=== PATIENT | male | born 1960 | race Caucasian/White ===

== ENCOUNTER 2019-09-09 10:50 | Inpatient (IN) | payer MEDICAID, OTHER ==
[~2019-09-09] VITALS: Ht 157.5 cm; Wt 53.8 kg
[~2019-09-09 10:50] MED LIST: BENZ0.5T44 PO; HALO5TAB2 PO; TRAZ-220 PO
[2019-09-09 13:44] LABS: BASOPHILS % (AUTO) 0.7 % (0.0-2.0); EOSINOPHILS % (AUTO) 2.6 % (1.0-6.0); HEMATOCRIT 44.8 % (41-53); HEMOGLOBIN 15.4 g/dL (13.5-17.5); LYMPHOCYTES # (AUTO) 1.4 K/uL (1.0-4.8); LYMPHOCYTES % (AUTO) 30.3 % (22.0-44.0); MEAN CORPUSCULAR HEMOGLOBIN 33.3 pg (26.0-34.0); MEAN CORPUSCULAR HGB CONC 34.4 G/dL (31.0-37.0); MEAN CORPUSCULAR VOLUME 97 fL (80-100); MONOCYTES # (AUTO) 0.5 K/uL (0.1-1.0); MONOCYTES % (AUTO) 11.2 % (2.0-9.0); NEUTROPHILS # (AUTO) 2.5 K/uL (1.8-7.7); NEUTROPHILS % (AUTO) 55.2 % (40.0-70.0); PLATELET COUNT (AUTO) 174 K/uL (150-450); RED BLOOD CELL COUNT(AUTO) 4.62 MIL/uL (4.50-5.90); RED CELL DISTRIBUTION WIDTH 13.2 % (11.5-14.5)
[2019-09-09 13:47] LABS: ANION GAP 4 mmol/L (8-16); CALCIUM, TOTAL 8.6 mg/dL (8.8-10.5); CARBON DIOXIDE 34 mmol/L (22-29); CHLORIDE 104 mmol/L (98-107); CREATININE 0.86 mg/dL (0.60-1.30); GLOMERULAR FILTR. RATE CALC > 60 mL/min (>60); GLUCOSE,RANDOM 94 mg/dL (70-110); SODIUM SERUM 142 mmol/L (136-145); UREA NITROGEN, BLOOD 6 mg/dL (7-18)
[2019-09-09 13:53] LABS: ALANINE AMINOTRANSFERASE 51 U/L (12-78); ALBUMIN 3.7 g/dL (3.4-5.0); ALKALINE PHOSPHATASE 79 U/L (46-116); ASPARTATE AMINOTRANSFERASE 69 U/L (15-37); BILIRUBIN,TOTAL 0.5 mg/dL (0.1-1.0)
[2019-09-09] MEDS ORDERED: MAGNESIUM HYDROXIDE SUSPENSION 30 ML UDCUP PO PRN (14:00)
[2019-09-09] MEDS ORDERED: HydrOXYzine PAMOATE 50 MG CAPSULE PO PRN (14:00)
[2019-09-09] MEDS ORDERED: PROMETHAZINE HCL 25 MG TABLET PO PRN (14:00)
[2019-09-09] MEDS ORDERED: ACETAMINOPHEN 325 MG TABLET PO PRN ×2 (14:00→19:30)
[2019-09-09] MEDS ORDERED: LORazepam 2 MG TABLET PO PRN (14:00)
[2019-09-09] MEDS ORDERED: GuaiFENesin/D-METHORPHAN [SUGAR-FREE] 200-20MG/10 ML SYRUP UDCUP PO PRN ×2 (14:00→19:30)
[2019-09-09] MEDS ORDERED: QUEtiapine FUMARATE 100 MG TABLET PO PRN (14:00)
[2019-09-09] MEDS ORDERED: ZOLPIDEM TARTRATE 10 MG TABLET PO PRN (14:00)
[2019-09-09] MEDS ORDERED: LOPERAMIDE HCL 2 MG CAPSULE PO PRN ×2 (14:00→19:30)
[2019-09-09] MEDS ORDERED: TUBERCULIN, PURIFIED PROTEIN DERIVATIVE 5 TU/0.1 ML SYRINGE ID ONE (14:00)
[2019-09-09] MEDS ORDERED: MAG HYDROX/AL HYDROX/SIMETH ES 30 ML SUSPENSION UDCUP PO PRN ×2 (14:00→19:30)
[2019-09-09 18:06] VITALS: BP 140/98
[2019-09-09] MEDS: THIAMINE HCL 100 MG TABLET PO SCH (18:44)
[2019-09-09] MEDS ORDERED: PETROLATUM,WHITE 28 GM JELLY TP PRN (19:30)
[2019-09-09] MEDS ORDERED: ONDANSETRON HCL 4 MG TABLET PO PRN (19:30)
[2019-09-09] MEDS ORDERED: IBUPROFEN 400 MG TABLET PO PRN (19:30)
[2019-09-09] MEDS ORDERED: HYPROMELLOSE 0.5% 15 ML OPHTHALMIC SOLUTION OU PRN (19:30)
[2019-09-09] MEDS ORDERED: CloNIDine HCL 0.1 MG TABLET PO PRN (19:30)
[2019-09-09] MEDS ORDERED: NICOTINE 14 MG/24 HOUR PATCH TD PRN (19:30)
[2019-09-09] MEDS ORDERED: ALBUTEROL SULFATE HFA 90 MCG/PUFF 8 GM INHALER IH PRN (19:30)
[2019-09-09] MEDS: MIRTAZAPINE 15 MG TABLET PO SCH (20:32)
[2019-09-09 20:35] LABS: AMPHET/METH SCREEN,URINE NEGATIVE (NEGATIVE); BARBITURATE SCREEN, URINE NEGATIVE (NEGATIVE); BENZODIAZEPINES SCREEN,URINE NEGATIVE (NEGATIVE); CANNABINOID SCREEN,URINE POSITIVE (NEGATIVE); COCAINE SCREEN,URINE NEGATIVE (NEGATIVE); METHADONE SCREEN, URINE NEGATIVE (NEGATIVE); OPIATE SCREEN,URINE NEGATIVE (NEGATIVE)
[2019-09-09] MEDS: MAGNESIUM HYDROXIDE SUSPENSION 30 ML UDCUP PO PRN (20:42)
[2019-09-09 20:43] LABS: PHENCYCLIDINE SCREEN,URINE NEGATIVE (NEGATIVE)
[2019-09-09 20:49] VITALS: BP 140/98
[2019-09-09] MEDS ORDERED: QUEtiapine FUMARATE 200 MG TABLET PO SCH (21:00)
[2019-09-10 06:06] LABS: BASOPHILS % (AUTO) 0.6 % (0.0-2.0); EOSINOPHILS % (AUTO) 5.1 % (1.0-6.0); HEMATOCRIT 43.9 % (41-53); HEMOGLOBIN 15.3 g/dL (13.5-17.5); LYMPHOCYTES # (AUTO) 1.4 K/uL (1.0-4.8); LYMPHOCYTES % (AUTO) 37.4 % (22.0-44.0); MEAN CORPUSCULAR HEMOGLOBIN 33.6 pg (26.0-34.0); MEAN CORPUSCULAR VOLUME 96 fL (80-100); MONOCYTES # (AUTO) 0.4 K/uL (0.1-1.0); MONOCYTES % (AUTO) 10.6 % (2.0-9.0); NEUTROPHILS # (AUTO) 1.7 K/uL (1.8-7.7); NEUTROPHILS % (AUTO) 46.3 % (40.0-70.0); PLATELET COUNT (AUTO) 143 K/uL (150-450); RED BLOOD CELL COUNT(AUTO) 4.57 MIL/uL (4.50-5.90); RED CELL DISTRIBUTION WIDTH 12.9 % (11.5-14.5)
[2019-09-10 06:28] LABS: ALANINE AMINOTRANSFERASE 49 U/L (12-78); ALBUMIN 3.3 g/dL (3.4-5.0); ALKALINE PHOSPHATASE 62 U/L (46-116); ANION GAP 4 mmol/L (8-16); ASPARTATE AMINOTRANSFERASE 44 U/L (15-37); BILIRUBIN,TOTAL 0.5 mg/dL (0.1-1.0); CALCIUM, TOTAL 8.2 mg/dL (8.8-10.5); CARBON DIOXIDE 32 mmol/L (22-29); CHLORIDE 105 mmol/L (98-107); CHOL/HDL RATIO 2.5 (4.2-7.3); CHOLESTEROL 123 mg/dL (131-200); CREATININE 0.73 mg/dL (0.60-1.30); FREE T4 (FREE THYROXINE) 1.24 ng/dL (0.76-1.46); GLOMERULAR FILTR. RATE CALC > 60 mL/min (>60); GLUCOSE,RANDOM 95 mg/dL (70-110); HDL CHOLESTEROL 50 mg/dL (40-60); LDL CHOL (CALC.) 59 mg/dL (0-130); POTASSIUM 3.9 mmol/L (3.5-5.1); SODIUM SERUM 141 mmol/L (136-145); THYROID STIMULATING HORMONE 0.57 uIU/mL (0.36-3.74); TOTAL PROTEIN, SERUM 6.2 g/dL (6.4-8.2); TRIGLYCERIDES 68 mg/dL (15-150); UREA NITROGEN, BLOOD 6 mg/dL (7-18)
[2019-09-10 06:30] LABS: HEMOGLOBIN A1C 4.4 % (4.5-6.2)
[2019-09-10] MEDS: DOCUSATE SODIUM 100 MG CAPSULE PO PRN (07:20)
[2019-09-10 08:47] VITALS: BP 119/70
[2019-09-10] MEDS: FOLIC ACID 1 MG TABLET PO SCH (08:54)
[2019-09-10] MEDS: THIAMINE HCL 100 MG TABLET PO SCH ×2 (08:54→16:37)
[2019-09-10] MEDS: NALTREXONE HCL 50 MG TABLET PO SCH (08:54)
[2019-09-10] MEDS: MULTIVITAMINS WITH MINERALS, THERAPEUTIC TABLET PO SCH (08:55)
[2019-09-10] MEDS: MAGNESIUM HYDROXIDE SUSPENSION 30 ML UDCUP PO PRN (13:50)
[2019-09-10 16:00] VITALS: BP 142/84
[2019-09-10] MEDS: MIRTAZAPINE 15 MG TABLET PO SCH (20:33)
[2019-09-10] MEDS: QUEtiapine FUMARATE 200 MG TABLET PO SCH (20:34)
[2019-09-11 08:51] VITALS: BP 111/74
[2019-09-11] MEDS: NALTREXONE HCL 50 MG TABLET PO SCH (08:57)
[2019-09-11] MEDS: MULTIVITAMINS WITH MINERALS, THERAPEUTIC TABLET PO SCH (08:57)
[2019-09-11] MEDS: THIAMINE HCL 100 MG TABLET PO SCH ×2 (08:57→16:23)
[2019-09-11] MEDS: FOLIC ACID 1 MG TABLET PO SCH (08:57)
[2019-09-11 17:00] VITALS: BP 145/79
[2019-09-11] MEDS: QUEtiapine FUMARATE 200 MG TABLET PO SCH (20:17)
[2019-09-11] MEDS ORDERED: MIRTAZAPINE 30 MG TABLET PO SCH (21:00)
[2019-09-12] MEDS: MULTIVITAMINS WITH MINERALS, THERAPEUTIC TABLET PO SCH (08:12)
[2019-09-12] MEDS: FOLIC ACID 1 MG TABLET PO SCH (08:12)
[2019-09-12] MEDS: NALTREXONE HCL 50 MG TABLET PO SCH (08:12)
[2019-09-12] MEDS: THIAMINE HCL 100 MG TABLET PO SCH ×2 (08:12→16:19)
[2019-09-12 08:35] VITALS: BP 110/75
[2019-09-12 16:50] VITALS: BP 137/76
[2019-09-12] MEDS ORDERED: QUEtiapine FUMARATE 200 MG TABLET PO SCH (21:00)
[2019-09-12] MEDS: MIRTAZAPINE 15 MG TABLET PO SCH (21:01)
[2019-09-13] MEDS: FOLIC ACID 1 MG TABLET PO SCH (08:42)
[2019-09-13] MEDS: NALTREXONE HCL 50 MG TABLET PO SCH (08:42)
[2019-09-13] MEDS: MULTIVITAMINS WITH MINERALS, THERAPEUTIC TABLET PO SCH (08:42)
[2019-09-13] MEDS: THIAMINE HCL 100 MG TABLET PO SCH ×2 (08:43→16:22)
[2019-09-13 10:01] VITALS: BP 106/76
[2019-09-13 18:00] VITALS: BP 113/76
[2019-09-13] MEDS: DOCUSATE SODIUM 100 MG CAPSULE PO PRN (19:09)
[2019-09-13] MEDS: MIRTAZAPINE 15 MG TABLET PO SCH (20:39)
[2019-09-13] MEDS: QUEtiapine FUMARATE 300 MG TABLET PO SCH (20:40)
[2019-09-14 00:56] VITALS: BP 119/74
[2019-09-14] MEDS: NALTREXONE HCL 50 MG TABLET PO SCH (08:50)
[2019-09-14] MEDS: MULTIVITAMINS WITH MINERALS, THERAPEUTIC TABLET PO SCH (08:50)
[2019-09-14] MEDS: FOLIC ACID 1 MG TABLET PO SCH (08:50)
[2019-09-14] MEDS: THIAMINE HCL 100 MG TABLET PO SCH ×2 (08:50→16:38)
[2019-09-14 09:07] VITALS: BP 105/70
[2019-09-14 16:54] VITALS: BP 136/83
[2019-09-14] MEDS: DOCUSATE SODIUM 100 MG CAPSULE PO PRN (18:33)
[2019-09-14] MEDS: QUEtiapine FUMARATE 300 MG TABLET PO SCH (20:10)
[2019-09-14] MEDS: MIRTAZAPINE 15 MG TABLET PO SCH (20:11)
[2019-09-15 08:34] VITALS: BP 119/79
[2019-09-15] MEDS: NALTREXONE HCL 50 MG TABLET PO SCH (09:28)
[2019-09-15] MEDS: THIAMINE HCL 100 MG TABLET PO SCH ×2 (09:28→15:47)
[2019-09-15] MEDS: FOLIC ACID 1 MG TABLET PO SCH (09:29)
[2019-09-15] MEDS: MULTIVITAMINS WITH MINERALS, THERAPEUTIC TABLET PO SCH (09:29)
[2019-09-15] MEDS: DOCUSATE SODIUM 100 MG CAPSULE PO PRN (15:48)
[2019-09-15 16:00] VITALS: BP 119/89
[2019-09-15] MEDS ORDERED: MAGNESIUM HYDROXIDE SUSPENSION 30 ML UDCUP PO PRN (17:45)
[2019-09-15] MEDS: MIRTAZAPINE 15 MG TABLET PO SCH (20:21)
[2019-09-15] MEDS ORDERED: LACTULOSE 20 GM/30 ML SOLUTION UDCUP PO PRN (20:45)
[2019-09-15] MEDS ORDERED: BISACODYL 5 MG EC TABLET PO PRN (20:45)
[2019-09-15] MEDS ORDERED: QUEtiapine FUMARATE 200 MG TABLET PO SCH (21:00)
[2019-09-16] MEDS: FOLIC ACID 1 MG TABLET PO SCH (08:15)
[2019-09-16] MEDS: THIAMINE HCL 100 MG TABLET PO SCH ×2 (08:15→16:07)
[2019-09-16] MEDS: NALTREXONE HCL 50 MG TABLET PO SCH (08:15)
[2019-09-16] MEDS: MULTIVITAMINS WITH MINERALS, THERAPEUTIC TABLET PO SCH (08:15)
[2019-09-16 08:57] VITALS: BP 132/70
[2019-09-16 17:15] VITALS: BP 126/75
[2019-09-16] MEDS: MIRTAZAPINE 15 MG TABLET PO SCH (20:29)
[2019-09-16] MEDS ORDERED: QUEtiapine FUMARATE 300 MG TABLET PO SCH (21:00)
[2019-09-17 08:44] VITALS: BP 109/76
[2019-09-17] MEDS: NALTREXONE HCL 50 MG TABLET PO SCH (08:46)
[2019-09-17] MEDS: THIAMINE HCL 100 MG TABLET PO SCH ×2 (08:46→16:30)
[2019-09-17] MEDS: FOLIC ACID 1 MG TABLET PO SCH (08:47)
[2019-09-17] MEDS: MULTIVITAMINS WITH MINERALS, THERAPEUTIC TABLET PO SCH (08:47)
[2019-09-17] MEDS ORDERED: HALOPERIDOL 5 MG TABLET PO PRN (13:45)
[2019-09-17] MEDS ORDERED: MIRT15 PO (14:33)
[2019-09-17] MEDS ORDERED: HALO10 PO (14:33)
[2019-09-17] MEDS ORDERED: NALT50TA PO (14:33)
[2019-09-17] MEDS ORDERED: TRIH2TAB3 PO (14:33)
[2019-09-17 16:30] VITALS: BP 117/83
[2019-09-17] MEDS: TRIHEXYPHENIDYL HCL 2 MG TABLET PO SCH (16:30)
[2019-09-17] MEDS: MIRTAZAPINE 15 MG TABLET PO SCH (20:18)
[2019-09-17] MEDS ORDERED: HALOPERIDOL 10 MG TABLET PO SCH (21:00)
[2019-09-18 05:19] VITALS: BP 126/80
[2019-09-18 08:16] VITALS: BP 120/81
[2019-09-18] MEDS: MULTIVITAMINS WITH MINERALS, THERAPEUTIC TABLET PO SCH (09:07)
[2019-09-18] MEDS: THIAMINE HCL 100 MG TABLET PO SCH (09:07)
[2019-09-18] MEDS: TRIHEXYPHENIDYL HCL 2 MG TABLET PO SCH ×2 (09:08→12:34)
[2019-09-18] MEDS: NALTREXONE HCL 50 MG TABLET PO SCH (09:08)
[2019-09-18] MEDS: FOLIC ACID 1 MG TABLET PO SCH (09:08)
[2019-09-18] MEDS ORDERED: FOLI5VIA2 IM ×2 (09:26→09:30)
[2019-09-18] MEDS ORDERED: MULT-1239 PO (09:27)
[2019-09-18] MEDS ORDERED: THIA1002I IM (09:28)
[2019-09-18] MEDS ORDERED: HALO10 PO (12:51)
[2019-09-18] MEDS ORDERED: HALOPERIDOL 10 MG TABLET PO SCH (21:00)
== END 2019-09-18 15:15 | disposition home or self-care (01) | DRG 750 ==
LOC: EMS 10:52 → 3EI 15:57
PROVIDERS: ADMIT Psychiatry & Neurology Psychiatry; ATTEND Psychiatry & Neurology Psychiatry
DX: F25.9 Schizoaffective disorder, unspecified (principal); R45.851 Suicidal ideations; Z91.19 Patient's noncompliance with other medical treatment and regimen; F14.90 Cocaine use, unspecified, uncomplicated; F17.200 Nicotine dependence, unspecified, uncomplicated; J44.9 Chronic obstructive pulmonary disease, unspecified; I10 Essential (primary) hypertension; R10.13 Epigastric pain; G89.29 Other chronic pain; M54.5 Low back pain; K21.9 Gastro-esophageal reflux disease without esophagitis; F41.9 Anxiety disorder, unspecified; R45.87 Impulsiveness; K59.00 Constipation, unspecified; Z79.899 Other long term (current) drug therapy; Z82.49 Family history of ischemic heart disease and other diseases of the circulatory system; Z88.8 Allergy status to other drugs, medicaments and biological substances
CPT/HCPCS: 83036; 84439; 84443; G0480; Q0162

== ENCOUNTER 2020-12-04 12:50 | Emergency (ER) | payer MEDICAID ==
[~2020-12-04] VITALS: Ht 167.6 cm; Wt 65.9 kg
[~2020-12-04 12:50] MED LIST changes: -BENZ0.5T44 PO; +FOLI5VIA2 IM; +HALO10 PO; -HALO5TAB2 PO; +MIRT-89 PO; +MULT-1239 PO; +NALT50TA PO; +THIA100V4 IM; -TRAZ-220 PO; +TRIH2TAB3 PO
[2020-12-04] MEDS ORDERED: HydrOXYzine PAMOATE 50 MG CAPSULE PO ONE (15:45)
[2020-12-04 16:25] VITALS: BP 133/77
== END 2020-12-04 16:31 | disposition home or self-care (01) ==
LOC: EMS 12:50
DX: F31.9 Bipolar disorder, unspecified (principal); G47.00 Insomnia, unspecified; Z79.899 Other long term (current) drug therapy
CPT/HCPCS: 99284; Z7502; Z7610

== ENCOUNTER 2021-02-20 01:29 | Emergency (ER) | payer MEDICAID ==
[~2021-02-20] VITALS: Ht 160 cm; Wt 63.6 kg
[2021-02-20] MEDS ORDERED: TAMS-13 PO (01:48)
[2021-02-20] MEDS ORDERED: HALO10 PO (01:48)
[2021-02-20] MEDS ORDERED: OMEP20 PO (01:48)
[2021-02-20] MEDS ORDERED: [UNRECOGNIZED DRUG - CODE] PO (01:48)
[2021-02-20] MEDS ORDERED: LORazepam 1 MG TABLET PO ONE (02:00)
[2021-02-20 03:27] VITALS: BP 118/71
== END 2021-02-20 04:30 | disposition home or self-care (01) ==
LOC: EMS 01:33
DX: G47.00 Insomnia, unspecified (principal); R06.6 Hiccough; F41.9 Anxiety disorder, unspecified; J45.909 Unspecified asthma, uncomplicated; J44.9 Chronic obstructive pulmonary disease, unspecified; K21.9 Gastro-esophageal reflux disease without esophagitis; I10 Essential (primary) hypertension; F20.9 Schizophrenia, unspecified; F17.210 Nicotine dependence, cigarettes, uncomplicated; F12.90 Cannabis use, unspecified, uncomplicated; F14.90 Cocaine use, unspecified, uncomplicated; Z91.011 Allergy to milk products
CPT/HCPCS: 99283

== ENCOUNTER 2021-06-21 13:22 | Inpatient (IN) | payer MEDICAID ==
[~2021-06-21] VITALS: Ht 162.6 cm; Wt 51.7 kg
[~2021-06-21 13:22] MED LIST changes: +OMEP20 PO; +TAMS-13 PO; +[UNRECOGNIZED DRUG - CODE] PO
[2021-06-21 15:01] LABS: BASOPHILS % (AUTO) 0.9 % (0.0-2.0); EOSINOPHILS % (AUTO) 3.4 % (1.0-6.0); HEMATOCRIT 39.5 % (41-53); HEMOGLOBIN 13.5 g/dL (13.5-17.5); LYMPHOCYTES # (AUTO) 0.8 K/uL (1.0-4.8); LYMPHOCYTES % (AUTO) 21.5 % (22.0-44.0); MEAN CORPUSCULAR HEMOGLOBIN 32.9 pg (26.0-34.0); MEAN CORPUSCULAR HGB CONC 34.1 G/dL (31.0-37.0); MEAN CORPUSCULAR VOLUME 97 fL (80-100); MONOCYTES # (AUTO) 0.3 K/uL (0.1-1.0); NEUTROPHILS # (AUTO) 2.5 K/uL (1.8-7.7); NEUTROPHILS % (AUTO) 65.2 % (40.0-70.0); PLATELET COUNT (AUTO) 147 K/uL (150-450); RED CELL DISTRIBUTION WIDTH 13.3 % (11.5-14.5)
[2021-06-21 15:09] LABS: ANION GAP 7 mmol/L (8-16); CALCIUM, TOTAL 8.4 mg/dL (8.8-10.5); CARBON DIOXIDE 33 mmol/L (22-29); CHLORIDE 104 mmol/L (98-107); CREATININE 0.76 mg/dL (0.60-1.30); GLOMERULAR FILTR. RATE CALC > 60 mL/min (>60); GLUCOSE,RANDOM 104 mg/dL (70-110); POTASSIUM 4.2 mmol/L (3.5-5.1); SODIUM SERUM 144 mmol/L (136-145); UREA NITROGEN, BLOOD 6 mg/dL (7-18)
[2021-06-21 15:15] LABS: ALANINE AMINOTRANSFERASE 30 U/L (12-78); ALBUMIN 3.2 g/dL (3.4-5.0); ALKALINE PHOSPHATASE 75 U/L (46-116); ASPARTATE AMINOTRANSFERASE 24 U/L (15-37); BILIRUBIN,TOTAL 0.2 mg/dL (0.1-1.0); TOTAL PROTEIN, SERUM 6.2 g/dL (6.4-8.2)
[2021-06-21 15:48] LABS: COVID AG,FIA SOURCE NASOPHARYNGEAL
[2021-06-21] MEDS ORDERED: ACETAMINOPHEN 325 MG TABLET PO PRN (16:30)
[2021-06-21] MEDS ORDERED: PROMETHAZINE HCL 25 MG TABLET PO PRN (16:30)
[2021-06-21] MEDS ORDERED: MAG HYDROX/AL HYDROX/SIMETH ES 30 ML SUSPENSION UDCUP PO PRN (16:30)
[2021-06-21] MEDS ORDERED: GuaiFENesin/D-METHORPHAN [SUGAR-FREE] 200-20MG/10 ML SYRUP UDCUP PO PRN (16:30)
[2021-06-21] MEDS ORDERED: HALOPERIDOL 5 MG TABLET PO PRN (16:30)
[2021-06-21] MEDS ORDERED: LORazepam 2 MG TABLET PO PRN (16:30)
[2021-06-21] MEDS ORDERED: LOPERAMIDE HCL 2 MG CAPSULE PO PRN (16:30)
[2021-06-21] MEDS ORDERED: HydrOXYzine PAMOATE 50 MG CAPSULE PO PRN (16:30)
[2021-06-21] MEDS ORDERED: TUBERCULIN, PURIFIED PROTEIN DERIVATIVE 5 TU/0.1 ML SYRINGE ID ONE (16:30)
[2021-06-21] MEDS ORDERED: HALOPERIDOL 5 MG TABLET PO SCH (21:00)
[2021-06-21] MEDS: THIAMINE 100 MG TABLET PO SCH (21:56)
[2021-06-21] MEDS: MELATONIN 5 MG TABLET PO SCH (21:57)
[2021-06-21] MEDS: MIRTAZAPINE 30 MG TABLET PO SCH (21:57)
[2021-06-21] MEDS: TRIHEXYPHENIDYL HCL 2 MG TABLET PO SCH (21:57)
[2021-06-21 22:27] LABS: APPEARANCE,URINE CLEAR (CLEAR); BILIRUBIN,URINE NEGATIVE (NEGATIVE); GLUCOSE, URINE (UA) NEGATIVE (NEGATIVE); KETONES,URINE NEGATIVE (NEGATIVE); LEUKOCYTE ESTERASE ,URINE NEGATIVE (NEGATIVE); NITRATE,URINE NEGATIVE (NEGATIVE); OCCULT BLOOD,URINE NEGATIVE (NEGATIVE); PROTEIN,URINE NEGATIVE (NEGATIVE); UROBILINOGEN,URINE 0.2 mg/dL (<=1.0)
[2021-06-21 22:43] LABS: AMPHET/METH SCREEN,URINE NEGATIVE (NEGATIVE); BARBITURATE SCREEN, URINE NEGATIVE (NEGATIVE); BENZODIAZEPINES SCREEN,URINE NEGATIVE (NEGATIVE); CANNABINOID SCREEN,URINE POSITIVE (NEGATIVE); COCAINE SCREEN,URINE NEGATIVE (NEGATIVE); METHADONE SCREEN, URINE NEGATIVE (NEGATIVE); OPIATE SCREEN,URINE NEGATIVE (NEGATIVE)
[2021-06-21 22:45] LABS: PHENCYCLIDINE SCREEN,URINE NEGATIVE (NEGATIVE)
[2021-06-22] VITALS (7 sets, daily range): BP systolic 105–134; BP diastolic 66–79
[2021-06-22] MEDS: NALTREXONE HCL 50 MG TABLET PO SCH (08:13)
[2021-06-22] MEDS: TRIHEXYPHENIDYL HCL 2 MG TABLET PO SCH ×3 (08:13→17:04)
[2021-06-22] MEDS: FOLIC ACID 1 MG TABLET PO SCH (08:13)
[2021-06-22] MEDS: THIAMINE 100 MG TABLET PO SCH ×2 (08:14→17:04)
[2021-06-22] MEDS: MULTIVITAMINS WITH MINERALS, THERAPEUTIC TABLET PO SCH (09:00)
[2021-06-22] MEDS: OMEGA-3/DHA/EPA/FISH OIL 1,000 MG CAPSULE PO SCH (09:00)
[2021-06-22] MEDS ORDERED: QUEtiapine FUMARATE 200 MG TABLET PO SCH (21:00)
[2021-06-22] MEDS: MIRTAZAPINE 30 MG TABLET PO SCH (21:31)
[2021-06-22] MEDS: MELATONIN 5 MG TABLET PO SCH (21:57)
[2021-06-22] MEDS: ZOLPIDEM TARTRATE 10 MG TABLET PO PRN (22:54)
[2021-06-23 06:46] LABS: HEMOGLOBIN A1C 5.4 % (3.8-5.6)
[2021-06-23 06:48] LABS: MAGNESIUM 2.2 mg/dL (1.80-2.40); PHOSPHORUS 4.3 mg/dL (2.5-4.9)
[2021-06-23 06:56] LABS: THYROID STIMULATING HORMONE 1.11 uIU/mL (0.36-3.74)
[2021-06-23 08:07] VITALS: BP 125/84
[2021-06-23] MEDS: OMEGA-3/DHA/EPA/FISH OIL 1,000 MG CAPSULE PO SCH (09:14)
[2021-06-23] MEDS: MULTIVITAMINS WITH MINERALS, THERAPEUTIC TABLET PO SCH (09:14)
[2021-06-23] MEDS: THIAMINE 100 MG TABLET PO SCH ×2 (09:14→16:19)
[2021-06-23] MEDS: NALTREXONE HCL 50 MG TABLET PO SCH (09:14)
[2021-06-23] MEDS: FOLIC ACID 1 MG TABLET PO SCH (09:15)
[2021-06-23 16:22] VITALS: BP 153/97
[2021-06-23] MEDS ORDERED: QUEtiapine FUMARATE 200 MG TABLET PO SCH (21:00)
[2021-06-23] MEDS: MIRTAZAPINE 30 MG TABLET PO SCH (21:04)
[2021-06-23] MEDS: MELATONIN 5 MG TABLET PO SCH (21:04)
[2021-06-24 08:09] VITALS: BP 124/81
[2021-06-24] MEDS: OMEGA-3/DHA/EPA/FISH OIL 1,000 MG CAPSULE PO SCH (08:32)
[2021-06-24] MEDS: FOLIC ACID 1 MG TABLET PO SCH (08:33)
[2021-06-24] MEDS: THIAMINE 100 MG TABLET PO SCH ×2 (08:33→16:08)
[2021-06-24] MEDS: MULTIVITAMINS WITH MINERALS, THERAPEUTIC TABLET PO SCH (08:33)
[2021-06-24] MEDS: NALTREXONE HCL 50 MG TABLET PO SCH (08:33)
[2021-06-24] MEDS: MAGNESIUM HYDROXIDE SUSPENSION 30 ML UDCUP PO PRN ×2 (08:34→16:08)
[2021-06-24 16:00] VITALS: BP 140/85
[2021-06-24] MEDS: MIRTAZAPINE 30 MG TABLET PO SCH (20:06)
[2021-06-24] MEDS: MELATONIN 5 MG TABLET PO SCH (20:06)
[2021-06-24] MEDS ORDERED: QUEtiapine FUMARATE 300 MG TABLET PO SCH (21:00)
[2021-06-25 08:05] VITALS: BP 127/89
[2021-06-25] MEDS: NALTREXONE HCL 50 MG TABLET PO SCH (08:42)
[2021-06-25] MEDS: THIAMINE 100 MG TABLET PO SCH ×2 (08:42→16:31)
[2021-06-25] MEDS: OMEGA-3/DHA/EPA/FISH OIL 1,000 MG CAPSULE PO SCH (08:42)
[2021-06-25] MEDS: FOLIC ACID 1 MG TABLET PO SCH (08:42)
[2021-06-25] MEDS: MULTIVITAMINS WITH MINERALS, THERAPEUTIC TABLET PO SCH (08:42)
[2021-06-25] MEDS: MAGNESIUM HYDROXIDE SUSPENSION 30 ML UDCUP PO PRN (08:42)
[2021-06-25 16:00] VITALS: BP 149/84
[2021-06-25 16:09] VITALS: BP 101/72
[2021-06-25] MEDS: MELATONIN 5 MG TABLET PO SCH (20:31)
[2021-06-25] MEDS: MIRTAZAPINE 30 MG TABLET PO SCH (20:40)
[2021-06-25] MEDS: QUEtiapine FUMARATE 200 MG TABLET PO SCH (20:40)
[2021-06-26] MEDS: THIAMINE 100 MG TABLET PO SCH ×2 (09:00→17:58)
[2021-06-26] MEDS: NALTREXONE HCL 50 MG TABLET PO SCH (09:00)
[2021-06-26] MEDS: FOLIC ACID 1 MG TABLET PO SCH (09:00)
[2021-06-26] MEDS: OMEGA-3/DHA/EPA/FISH OIL 1,000 MG CAPSULE PO SCH (09:00)
[2021-06-26] MEDS: MULTIVITAMINS WITH MINERALS, THERAPEUTIC TABLET PO SCH (09:00)
[2021-06-26 10:15] VITALS: BP 116/78
[2021-06-26 16:00] VITALS: BP 128/87
[2021-06-26] MEDS: QUEtiapine FUMARATE 100 MG TABLET PO PRN (21:30)
[2021-06-26] MEDS: MIRTAZAPINE 30 MG TABLET PO SCH (21:30)
[2021-06-26] MEDS: MELATONIN 5 MG TABLET PO SCH (21:30)
[2021-06-26] MEDS: QUEtiapine FUMARATE 200 MG TABLET PO SCH (21:41)
[2021-06-27] MEDS: MAGNESIUM HYDROXIDE SUSPENSION 30 ML UDCUP PO PRN (06:55)
[2021-06-27] MEDS: MULTIVITAMINS WITH MINERALS, THERAPEUTIC TABLET PO SCH (09:38)
[2021-06-27] MEDS: NALTREXONE HCL 50 MG TABLET PO SCH (09:38)
[2021-06-27] MEDS: FOLIC ACID 1 MG TABLET PO SCH (09:38)
[2021-06-27] MEDS: THIAMINE 100 MG TABLET PO SCH ×2 (09:38→17:20)
[2021-06-27] MEDS: OMEGA-3/DHA/EPA/FISH OIL 1,000 MG CAPSULE PO SCH (09:38)
[2021-06-27 11:36] VITALS: BP 103/70
[2021-06-27 14:08] LABS: COVID AG,FIA SOURCE NASAL SWAB
[2021-06-27 16:51] VITALS: BP 106/82
[2021-06-27] MEDS: MELATONIN 5 MG TABLET PO SCH (21:18)
[2021-06-27] MEDS: MIRTAZAPINE 30 MG TABLET PO SCH (21:18)
[2021-06-27] MEDS: QUEtiapine FUMARATE 100 MG TABLET PO PRN (21:19)
[2021-06-27] MEDS: QUEtiapine FUMARATE 200 MG TABLET PO SCH (21:22)
[2021-06-27 23:15] VITALS: BP 124/85
[2021-06-27] MEDS: ZOLPIDEM TARTRATE 10 MG TABLET PO PRN (23:33)
[2021-06-28] MEDS: MULTIVITAMINS WITH MINERALS, THERAPEUTIC TABLET PO SCH (08:27)
[2021-06-28] MEDS: THIAMINE 100 MG TABLET PO SCH ×2 (08:27→16:19)
[2021-06-28] MEDS: NALTREXONE HCL 50 MG TABLET PO SCH (08:27)
[2021-06-28] MEDS: FOLIC ACID 1 MG TABLET PO SCH (08:27)
[2021-06-28] MEDS: OMEGA-3/DHA/EPA/FISH OIL 1,000 MG CAPSULE PO SCH (08:27)
[2021-06-28 09:05] VITALS: BP 131/91
[2021-06-28 16:25] VITALS: BP 121/88
[2021-06-28] MEDS ORDERED: QUET200T30 PO (19:06)
[2021-06-28] MEDS ORDERED: MIRT30 PO (19:06)
[2021-06-28] MEDS ORDERED: OMEG-135 PO (19:06)
[2021-06-28] MEDS ORDERED: MELA5TAB40 PO (19:06)
[2021-06-28] MEDS ORDERED: NALT50TA PO (19:06)
[2021-06-28] MEDS: MELATONIN 5 MG TABLET PO SCH (20:22)
[2021-06-28] MEDS: MIRTAZAPINE 30 MG TABLET PO SCH (20:22)
[2021-06-28] MEDS: QUEtiapine FUMARATE 200 MG TABLET PO SCH (20:22)
[2021-06-29 09:17] VITALS: BP 116/76
[2021-06-29] MEDS: THIAMINE 100 MG TABLET PO SCH (09:29)
[2021-06-29] MEDS: OMEGA-3/DHA/EPA/FISH OIL 1,000 MG CAPSULE PO SCH (09:29)
[2021-06-29] MEDS: FOLIC ACID 1 MG TABLET PO SCH (09:29)
[2021-06-29] MEDS: MULTIVITAMINS WITH MINERALS, THERAPEUTIC TABLET PO SCH (09:29)
[2021-06-29] MEDS: NALTREXONE HCL 50 MG TABLET PO SCH (09:29)
== END 2021-06-29 15:25 | disposition home or self-care (01) | DRG 750 ==
LOC: EMS 13:42 → 3EI 06-22 02:30
PROVIDERS: ADMIT Psychiatry & Neurology Psychiatry; ATTEND Psychiatry & Neurology Psychiatry
DX: F25.9 Schizoaffective disorder, unspecified (principal); R45.851 Suicidal ideations; Z91.19 Patient's noncompliance with other medical treatment and regimen; F12.90 Cannabis use, unspecified, uncomplicated; I10 Essential (primary) hypertension; J44.9 Chronic obstructive pulmonary disease, unspecified; F17.210 Nicotine dependence, cigarettes, uncomplicated; K21.9 Gastro-esophageal reflux disease without esophagitis; Z79.899 Other long term (current) drug therapy; Z87.828 Personal history of other (healed) physical injury and trauma; Z91.5 Personal history of self-harm; Z55.9 Problems related to education and literacy, unspecified; Z59.9 Problem related to housing and economic circumstances, unspecified; Z65.3 Problems related to other legal circumstances; Z20.822 Contact with and (suspected) exposure to COVID-19
CPT/HCPCS: 80053; 80061; 81003; 83036; 83735; 84100; 84443; 85025; 86592; 87081; 92610; 99285; G0480; Q9967

== ENCOUNTER 2024-11-23 11:12 | Emergency (ER) | payer MEDICAID ==
[~2024-11-23] VITALS: Ht 170.2 cm; Wt 65.9 kg
[~2024-11-23 11:12] MED LIST changes: -FOLI5VIA2 IM; -HALO10 PO; +MELA5TAB40 PO; +MIRT-149 PO; -MULT-1239 PO; -NALT50TA PO; +NALT50TA6 PO; +OMEG-135 PO; -OMEP20 PO; +QUET200T30 PO; -TAMS-13 PO; -THIA100V4 IM; -TRIH2TAB3 PO; -[UNRECOGNIZED DRUG - CODE] PO
[2024-11-23 11:25] VITALS: BP 122/76; PULSE 66; RESP 16; TEMP 97.8; O2SAT 98
[2024-11-23 12:01] LABS: BASOPHILS % (AUTO) 0.6 % (0.0-2.0); EOSINOPHILS % (AUTO) 1.3 % (1.0-6.0); HEMATOCRIT 45.4 % (41-53); HEMOGLOBIN 15.7 g/dL (13.5-17.5); LYMPHOCYTES # (AUTO) 1.3 K/uL (1.0-4.8); LYMPHOCYTES % (AUTO) 27.8 % (22.0-44.0); MEAN CORPUSCULAR HEMOGLOBIN 33.4 pg (26.0-34.0); MEAN CORPUSCULAR HGB CONC 34.6 G/dL (31.0-37.0); MEAN CORPUSCULAR VOLUME 96 fL (80-100); MONOCYTES # (AUTO) 0.5 K/uL (0.1-1.0); MONOCYTES % (AUTO) 9.8 % (2.0-9.0); NEUTROPHILS # (AUTO) 2.8 K/uL (1.8-7.7); NEUTROPHILS % (AUTO) 60.5 % (40.0-70.0); PLATELET COUNT (AUTO) 194 K/uL (150-450); RED BLOOD CELL COUNT(AUTO) 4.71 MIL/uL (4.50-5.90); RED CELL DISTRIBUTION WIDTH 13.4 % (11.5-14.5); WHITE BLOOD COUNT (AUTO) 4.7 K/uL (4.5-11.0)
[2024-11-23 12:11] LABS: ANION GAP 2 mmol/L (8-16); CARBON DIOXIDE 35 mmol/L (22-29); CHLORIDE 103 mmol/L (98-107); GLOMERULAR FILTR. RATE CALC > 60 mL/min (>60); GLUCOSE,RANDOM 93 mg/dL (70-110); POTASSIUM 4.4 mmol/L (3.5-5.1); SODIUM SERUM 140 mmol/L (136-145); UREA NITROGEN, BLOOD 9 mg/dL (7-18)
[2024-11-23 12:13] LABS: ALCOHOL, BLOOD (SERUM) < 3 mg/dL (0-10)
[2024-11-23 13:09] LABS: COVID AG,FIA SOURCE NASAL SWAB
[2024-11-23 13:33] LABS: SARS-COV2 (COVID) ANTIGEN,FIA Negative (Negative)
== END 2024-11-23 14:14 ==
LOC: EMS 11:17
DX: F32.9 Major depressive disorder, single episode, unspecified (principal); R44.0 Auditory hallucinations; Z71.6 Tobacco abuse counseling; Z20.822 Contact with and (suspected) exposure to COVID-19
CPT/HCPCS: 99284; 87426; 80048; 85025; G0480; 99283

== ENCOUNTER → 2025-05-20 | Emergency (ER) | payer MEDICAID ==
[~2025-05-20] VITALS: Ht 167.6 cm; Wt 52.8 kg
[~2025-05-20] MED LIST changes: +DIPH50CA35 PO; +LOSA-381 PO; +TAMS0.4C94 PO
[2025-05-20 18:04] VITALS: BP 125/76; PULSE 76; RESP 20; TEMP 98.6; O2SAT 99
[2025-05-20 19:15] LABS: PLATELET COUNT (AUTO) 157 K/uL (150-450); RED BLOOD CELL COUNT(AUTO) 4.35 MIL/uL (4.50-5.90); RED CELL DISTRIBUTION WIDTH 13.2 % (11.5-14.5); WHITE BLOOD COUNT (AUTO) 6.2 K/uL (4.5-11.0)
[2025-05-20 19:23] LABS: CALCIUM, TOTAL 8.9 mg/dL (8.8-10.5); CREATININE 0.83 mg/dL (0.60-1.30); GLOMERULAR FILTR. RATE CALC > 60 mL/min (>60); GLUCOSE,RANDOM 105 mg/dL (70-110); SODIUM SERUM 139 mmol/L (136-145); UREA NITROGEN, BLOOD 8 mg/dL (7-18)
[2025-05-20 21:52] LABS: COVID AG,FIA SOURCE NASAL SWAB
[2025-05-20 22:10] LABS: SARS-COV2 (COVID) ANTIGEN,FIA Negative (Negative)
[2025-05-20 23:17] LABS: APPEARANCE,URINE CLEAR (CLEAR); GLUCOSE, URINE (UA) NEGATIVE (NEGATIVE); LEUKOCYTE ESTERASE ,URINE NEGATIVE (NEGATIVE); NITRATE,URINE NEGATIVE (NEGATIVE); OCCULT BLOOD,URINE NEGATIVE (NEGATIVE); PH,URINE DRUG SCREEN 5.5 (5.0-8.0); SPECIFIC GRAVITIY, URINE 1.005 (1.003-1.030)
[2025-05-20 23:27] LABS: ALCOHOL, URINE DRUG SCREEN NEGATIVE (NEGATIVE); AMPHET/METH SCREEN,URINE NEGATIVE (NEGATIVE); BARBITURATE SCREEN, URINE NEGATIVE (NEGATIVE); CANNABINOID SCREEN,URINE NEGATIVE (NEGATIVE); COCAINE SCREEN,URINE NEGATIVE (NEGATIVE); METHADONE SCREEN, URINE NEGATIVE (NEGATIVE)
== END | disposition still patient (30) ==
LOC: EMS 18:55
DX: F25.1 Schizoaffective disorder, depressive type (principal); F12.90 Cannabis use, unspecified, uncomplicated; F17.210 Nicotine dependence, cigarettes, uncomplicated; Z91.011 Allergy to milk products; Z79.899 Other long term (current) drug therapy; Z20.822 Contact with and (suspected) exposure to COVID-19
CPT/HCPCS: 99284; 87426; 80048; 81003; 85025; 36415; 80307; G0480